=== PATIENT | male | born 1990 | race Caucasian/White ===

== ENCOUNTER 2019-01-10 15:40 | Emergency (ER) | payer BC ==
--- NOTE | 2019-01-10 17:18 | ED ---
GI/ HPI - HPI Summary HPI Summary: 28-year-old male presents with right-sided abdominal pain that radiates to his back today. He states that it was sudden onset. He states that the pain has been waxing waning. Never had this before. He denies any dysuria. Denies any hematuria. He denies any nausea and vomiting. No fevers. He denies any diarrhea or constipation. No testicular pain. Took some Advil and ended up throwing up. He denies any family history or personal history kidney stones. - History of Current Complaint Chief Complaint: EDAbdPain Time Seen by Provider: 01/10/19 17:10 Stated Complaint: LOW RT SIDE FLANK PAIN PER PT Pain Intensity: 9 - Allergy/Home Medications Allergies/Adverse Reactions: Allergies Allergy/AdvReac Type Severity Reaction Status Date / Time No Known Allergies Allergy Verified 01/10/19 15:48 PMH/Surg Hx/FS Hx/Imm Hx Endocrine/Hematology History: Denies: Hx Anticoagulant Therapy Respiratory History: Denies: Hx Asthma Infectious Disease History: No Infectious Disease History: Denies: Traveled Outside the [place] in Last 30 Days - Family History Known Family History: Positive: Non-Contributory - Social History Alcohol Use: Occasionally Substance Use Type: Reports: None Review of Systems Negative: Fever Negative: Chest Pain Negative: Shortness Of Breath Positive: Abdominal Pain, Vomiting, Nausea. Negative: Diarrhea All Other Systems Reviewed And Are Negative: Yes Physical Exam Triage Information Reviewed: Yes Vital Signs On Initial Exam: Initial Vitals Temp Pulse Resp BP Pulse Ox 96.0 F 54 16 113/76 100 01/10/19 15:43 01/10/19 15:43 01/10/19 15:43 01/10/19 15:43 01/10/19 15:43 Vital Signs Reviewed: Yes Appearance: Positive: Well-Appearing Skin: Positive: Warm, Dry Head/Face: Positive: Normal Head/Face Inspection Eyes: Positive: Normal, Conjunctiva Clear ENT: Positive: Pharynx normal Respiratory/Lung Sounds: Positive: Clear to Auscultation, Breath Sounds Present Cardiovascular: Positive: Normal, RRR Abdomen Description: Positive: Soft, CVA Tenderness (R), Other: - tenderness right side abd. Negative: CVA Tenderness (L) Bowel Sounds: Positive: Present Musculoskeletal: Positive: Normal Neurological: Positive: Normal Psychiatric: Positive: Normal Procedures - Sedation Patient Received Moderate/Deep Sedation with Procedure: No Diagnostics - Vital Signs Vital Signs Temp Pulse Resp BP Pulse Ox 01/10/19 15:43 96.0 F 54 16 113/76 100 - Laboratory Result Diagrams: 01/10/19 17:26 01/10/19 17:33 Lab Statement: Any lab studies that have been ordered have been reviewed, and results considered in the medical decision making process. GIGU Course/Dx - Course Course Of Treatment: 28-year-old male presents with right-sided abdominal pain that radiates to his back today. He states that it was sudden onset. He states that the pain has been waxing waning. Never had this before. He denies any dysuria. Denies any hematuria. He denies any nausea and vomiting. No fevers. He denies any diarrhea or constipation. No testicular pain. Took some Advil and ended up throwing up. He denies any family history or personal history kidney stones. On exam tenderness over right side abd and flank. will give pain medication and fluids. patient signed out to akash pending lab work urine and CT. - Diagnoses Differential Diagnoses - Male: Pyelonephritis, Ureteral Calculi, Urinary Tract Infection Provider Diagnoses: Flank pain, Abdominal pain Discharge ED - Sign-Out/Discharge Documenting (check all that apply): Sign-Out Patient Signing out patient TO: Ruben Bray - Discharge Plan Referrals: No Primary Care Phys,NOPCP [Primary Care Provider] -
[2019-01-10] MEDS: Ondansetron INJ* 2 MG/ML VIAL IV ONE (17:31)
[2019-01-10] MEDS: Ketorolac INJ* 30 MG/ML 1 ML VIAL IV PUSH ONE (17:31)
[2019-01-10] MEDS: NS 0.9% 1000 ML** 1,000 ML IV ONE (17:31)
[2019-01-10] MEDS: Morphine 4 MG/ML VIAL (1 ml) 4 MG/ML VIAL IV ONE (17:31)
[2019-01-10 17:38] LABS: Urine Appearance Clear; Urine Bilirubin Negative (Negative); Urine Blood Negative (Negative); Urine Color Yellow; Urine Glucose Negative (Negative); Urine Ketones 1+ (Negative); Urine Nitrite Negative (Negative); Urine Protein Negative (Negative); Urine Specific Gravity 1.021 (1.010-1.030); Urine Urobilinogen Negative (Negative)
[2019-01-10 17:45] LABS: ABS Lymphocytes 1.2 10^3/ul (1.0-4.8); ABS Monocytes 0.6 10^3/ul (0-0.8); ABS Neutrophils 10.3 10^3/ul (1.5-7.7); Eosinophil % 0.2 %; Hematocrit 44 % (42-52); Lymphocyte % 9.8 %; Mean Corpuscular HGB Conc 34 g/dL (31-36); Mean Corpuscular Hemoglobin 29 pg (27-31); Mean Corpuscular Volume 86 fL (80-94); Platelet Count 234 10^3/uL (150-450); Red Blood Count 5.12 10^6 /uL (4.18-5.48); Red Cell Distribution Width 13 % (10-15); White Blood Count 12.2 10^3/uL (3.5-10.8)
[2019-01-10 18:06] LABS: ALT 20 U/L (7-52); AST 18 U/L (13-39); Albumin 4.6 g/dL (3.2-5.2); Albumin/Globulin Ratio 1.4 (1-3); Alkaline Phosphatase 41 U/L (34-104); Anion Gap 7 mmol/L (2-11); Blood Urea Nitrogen 15 mg/dL (6-24); C Reactive Protein < 1.00 mg/L (<8.01); CO2 Carbon Dioxide 27 mmol/L (22-32); Calcium 9.9 mg/dL (8.6-10.3); Chloride 101 mmol/L (101-111); EGFR Non-African American 94.2 (>60); Globulin 3.2 g/dL (2-4); Glucose 165 mg/dL (70-100); Potassium 4.3 mmol/L (3.5-5.0); Sodium 135 mmol/L (135-145); Total Protein 7.8 g/dL (6.4-8.9)
--- NOTE | 2019-01-10 18:13 | ED ---
Progress - Results/Orders Results/Orders: Exam: CT Abdomen And Pelvis Without Contrast Exam date and time: 01/10/2019 5:42 PM Age: 28 years old Clinical history: Abdominal pain; Flank; Right; Additional info: Right flank, right abd pain TECHNIQUE: Imaging protocol: Computed tomography of the abdomen and pelvis without contrast. Radiation optimization: All CT scans at this facility use at least one of these dose optimization techniques: automated exposure control; mA and/or kV adjustment per patient size (includes targeted exams where dose is matched to clinical indication); or iterative reconstruction. COMPARISON: No relevant prior studies available. FINDINGS: Lungs: There is minimal bibasilar atelectatic change or scarring. Liver: Normal. No mass. Gallbladder and bile ducts: Normal. No calcified stones. No ductal dilation. Pancreas: Normal. No ductal dilation. Spleen: Normal. No splenomegaly. Adrenals: Normal. No mass. Kidneys and ureters: There is a 3 mm calculus at the right ureterovesical junction without significant obstructive uropathy. Stomach and bowel: Unremarkable. No obstruction. No mucosal thickening. Appendix: No evidence of appendicitis. Intraperitoneal space: Unremarkable. No free air. No significant fluid collection. Vasculature: Unremarkable. No abdominal aortic aneurysm. Lymph nodes: Unremarkable. No enlarged lymph nodes. Bladder: Unremarkable as visualized. Reproductive: Unremarkable as visualized. Bones/joints: Unremarkable. No acute fracture. Soft tissues: Unremarkable. IMPRESSION: There is a 3 mm calculus at the right ureterovesical junction without significant obstructive uropathy. Re-Evaluation - Re-Evaluation First Eval Re-Evaluation Time: 18:30 Change: Improved Comment: Patient reports pain is much improved. No further episodes of vomiting. The lab and CT results were reviewed with the patient. Plan is to discharge home with pain management and tamsulosin and follow-up with urology. Course/Dx - Course Course Of Treatment: 28-year-old male presents with right-sided abdominal pain that radiates to his back today. He states that it was sudden onset. He states that the pain has been waxing waning. Never had this before. He denies any dysuria. Denies any hematuria. He denies any nausea and vomiting. No fevers. He denies any diarrhea or constipation. No testicular pain. Took some Advil and ended up throwing up. He denies any family history or personal history kidney stones. On exam tenderness over right side abd and flank. will give pain medication and fluids. patient signed out to akash pending lab work urine and CT. Addendum: Patient's labs were reviewed. Mildly elevated WBC of 12.2, normal kidney function, urine showed 1+ ketones otherwise unremarkable. Remainder of labs within normal limits. CT scan showed a 3 mm calculus at the right ureterovesical junction without significant obstructive uropathy. Results were reviewed with the patient. He reports pain is much improved and he said no further episodes of vomiting. We discussed that with the small stone and improved pain plan is to discharge home with naproxen 500 mg twice a day as needed for pain and a short-term prescription for hydrocodone acetaminophen 5 mg/325 mg 1 tablet every 6 hours as needed for severe pain. He will also be given prescriptions for Zofran 4 mg every 8 hours as needed for nausea or vomiting and tamsulosin 0.4 mg daily to help with the expulsion of the stone. He is to follow-up with urology within 1 week. Anticipatory guidance and warning symptoms were reviewed with the patient. Verbalizes understanding and agrees with plan of care. - Diagnoses Provider Diagnoses: Flank pain, Abdominal pain Discharge ED - Sign-Out/Discharge Documenting (check all that apply): Patient Departure - Discharge Plan Condition: Stable Disposition: HOME Prescriptions: Hydrocodone/Acetaminophen [Hydrocodone/Acetaminophen 5-325 mg] 1 tab PO Q8HR PRN #9 tab MDD 3 PRN Reason: Pain - Severe Naproxen [Naproxen 500 mg tab] 500 mg PO Q12HR PRN #30 tablet PRN Reason: Pain - Moderate Ondansetron [Ondansetron Odt] 4 mg PO Q8HR PRN #9 tab.rapdis PRN Reason: Nausea/Vomiting Tamsulosin CAP* [Flomax CAP*] 0.4 mg PO DAILY #14 cap Patient Education Materials: Kidney Stones (ED), How to Strain Your Urine (ED) Referrals: No Primary Care Phys,NOPCP [Primary Care Provider] - Jose Antonio Agosto MD [Medical Doctor] - 7 Days (Call for appointment.) Additional Instructions: The CT scan that was performed in the emergency room tonight confirms she have a 3 mm kidney stone in the distal ureter that is not causing any obstruction. Based on the size and location of the stone will most likely pass without any complications. Be sure to push plenty of fluids. Take tamsulosin 0.4 mg 1 capsule daily to help facilitate the passing of the stone. You are given the first dose in the emergency room. Be careful when changing positions as this medication can cause dizziness if she changed positions too quickly. Take naproxen 500 mg 1 tablet every 12 hours with food as needed for pain. Take hydrocodoneacetaminophen 5 mg/325 mg 1 tablet every 8 hours as needed for severe pain. This medication is a narcotic and will cause drowsiness do not take and drive or operate machinery. Take ondansetron 4 mg 1 tablet every 8 hours as needed for nausea or vomiting. Be sure to strain your urine and bring the stone to your appointment with urology should you passage before that time. Follow-up with urology within 1 week for further evaluation and treatment. You' ll need to call for an appointment. Return to the emergency room if you develop a fever greater than 100.5 F, have severe pain that is not managed with your pain medication, persistent vomiting, or any worsening of symptoms. - Billing Disposition and Condition Condition: STABLE Disposition: Home
[2019-01-10] MEDS: Tamsulosin CAP* 0.4 MG PO ONE (18:38)
[2019-01-10 18:50] VITALS: BP 114/70
== END 2019-01-10 18:50 | disposition home or self-care (01) ==
LOC: ED 15:40
DX: R10.31 Right lower quadrant pain (principal); N20.1 Calculus of ureter
CPT/HCPCS: 36415; 74176; 80053; 81003; 83605; 83690; 85025; 86140; 96361; 96374; 96375; 99282; J1885; J2270; J2405